=== PATIENT | female | born 1995 | race Caucasian/White ===

== ENCOUNTER → 2019-10-17 | Emergency (ER) | payer BC, OTHER ==
[~2019-10-17] VITALS: Ht 162.6 cm; Wt 83.9 kg
[~2019-10-17] MED LIST: KETOROLAC TROMETH 60MG/2ML VIAL IM ONE; ONDANSETRON ODT 4 MG TAB PO ONE; SODIUM CHLORIDE 0.9% 1,000 ML IV ONE
[2019-10-17 17:41] VITALS: BP 130/84
[2019-10-17 20:00] LABS: Urine Bacteria FEW /hpf (None Seen); Urine Blood 1+ /uL (Negative); Urine Mucus FEW (None Seen); Urine Specific Gravity 1.021 (1.001-1.035); Urine WBC 12 /hpf (0 - 5)
== END | disposition home or self-care (01) ==
LOC: ER 17:19
DX: G43.109 Migraine with aura, not intractable, without status migrainosus (principal); N39.0 Urinary tract infection, site not specified; Z32.02 Encounter for pregnancy test, result negative
CPT/HCPCS: 81001; 81025; 96372; 99283; J1885; J7030; Q0162